=== PATIENT | male | born 1990 | race Two or more races ===

== ENCOUNTER 2018-08-03 07:11 | Emergency (ER) | payer SELFPAY ==
[~2018-08-03] VITALS: Ht 185.4 cm; Wt 73.0 kg
[2018-08-03 07:21] VITALS: BP 144/92
[2018-08-03] MEDS ORDERED: SODIUM CHLORIDE 0.9% 1,000 ML IV ONE (07:34)
[2018-08-03] MEDS ORDERED: LEVETIRACETAM 1000MG/100ML 100 ML IV ONE (07:45)
== END 2018-08-03 07:40 | disposition left against medical advice (07) ==
LOC: ER 07:11
DX: R56.9 Unspecified convulsions (principal); G93.40 Encephalopathy, unspecified; F10.129 Alcohol abuse with intoxication, unspecified; Z88.9 Allergy status to unspecified drugs, medicaments and biological substances; Y90.9 Presence of alcohol in blood, level not specified
CPT/HCPCS: 99283; J7030